=== PATIENT | male | born 1955 | race Caucasian/White ===

== ENCOUNTER 2017-09-15 09:10 | Outpatient (CLI) | payer OTHER | END 2017-09-15 09:11 | disposition home or self-care (01) | LOC: BICRAD 09:10 | PROVIDERS: ATTEND Internal Medicine Rheumatology | DX: L40.53 Psoriatic spondylitis (principal); J98.11 Atelectasis | CPT/HCPCS: 71046 ==

== ENCOUNTER 2017-12-10 09:57 | Outpatient (CLI) | payer OTHER ==
--- NOTE | 2017-12-10 11:13 | RAD ---
LUMBAR SPINE SERIES FOUR VIEWS WITH FLEXION AND EXTENSION: History: Severe back pain. FINDINGS: There is limited motion in either flexion and extension. The vertebral bodies are normal in height. D egenerative osteophytes are seen. Some minimal disc narrowing at L2-3. No abnormal motion is seen on limited flexion and extension views. Pedicles are intact. Post op changes which appear to be related to prostatectomy changes present. IMPRESSION: Mild arthritic changes of the spine. POS: TODD
== END 2017-12-10 09:58 | disposition home or self-care (01) ==
LOC: SCSRAD 09:57
PROVIDERS: ATTEND Neurological Surgery
DX: M47.26 Other spondylosis with radiculopathy, lumbar region (principal)
CPT/HCPCS: 72100; 72120

== ENCOUNTER 2017-12-30 09:06 | Outpatient (CLI) | payer OTHER ==
[2017-12-30 10:51] LABS: Hemoglobin 14.6 g/dL (14.0-18.0); Mean Corpuscular HGB CONC 33.9 g/dL (32.0-36.0); Mean Corpuscular Hemoglobin 33.1 pg (27.0-31.0); Mean Corpuscular Volume 97.5 fL (78.0-98.0); Mean Platelet Volume 7.2 fL (7.4-10.4); Platelet Count 313 thou/uL (130-400); RBC Distribution Width 11.6 % (11.5-14.5); Red Blood Cell (RBC) Count 4.43 mill/uL (4.70-6.10); White Blood Cell (WBC) Count 6.8 thou/uL (4.8-10.8)
[2017-12-30 10:52] LABS: PTT 31.1 SEC (22.9-36.1); Prothrombin Time 12.8 SEC (12.0-14.7)
[2017-12-30 11:23] LABS: Anion Gap 13 mmol/L (10-20); BUN (Urea Nitrogen) 16 mg/dL (8.4-25.7); Calc. Creatinine Clearance 0 mL/min (70-130); Calcium 9.3 mg/dL (7.8-10.44); Carbon Dioxide 26 mmol/L (23-31); Chloride 103 mmol/L (98-107); Estimated GFR-MDRD Greater than 90; Glucose 95 mg/dL (80-115); Potassium 4.3 mmol/L (3.5-5.1); Sodium 138 mmol/L (136-145)
--- NOTE | 2018-01-04 14:35 | EKG ---
Test Reason : Blood Pressure : / mmHG Vent. Rate : 065 BPM Atrial Rate : 065 BPM P-R Int : 192 ms QRS Dur : 090 ms QT Int : 414 ms P-R-T Axes : 058 -14 006 degrees QTc Int : 430 ms Normal sinus rhythm Normal ECG No previous ECGs available Confirmed by CARLOTA COLEY (2) on 01/04/2018 2:35:41 PM Referred By: ERNESTINE Confirmed By:CARLOTA COLEY
== END 2017-12-30 09:07 | disposition home or self-care (01) ==
LOC: LABBT 09:06
PROVIDERS: ATTEND Neurological Surgery
DX: Z01.818 Encounter for other preprocedural examination (principal); M48.061 Spinal stenosis, lumbar region without neurogenic claudication; M71.30 Other bursal cyst, unspecified site
CPT/HCPCS: 80048; 85027; 85610; 85730; 93005; 93010

== ENCOUNTER 2018-01-01 10:37 | Day surgery (SDC) | payer OTHER ==
[2017-12-30 09:42] VITALS: BMI 25.0
--- NOTE | 2017-12-31 15:56 | HP ---
HISTORY OF PRESENT ILLNESS: This is a 62-year-old male who presents to our office for evaluation of low back pain and leg pain. He is showing symptoms of lumbar radiculopathy. Patient states that he has had back pain that has gotten significantly worse over the last several months. He states that h e is unable to stand for any length of time. He states it is worse on the right. The pain starts in his back and progresses into his hips and the back of his legs. Since his injection, the pain has n ot gone past his knees. The patient states his pain is relieved by sitting or lying down and in thos e positions, he is almost pain free. He denies any numbness or tingling and that he is only able to stand for 5-10 minutes without needing to sit down. REVIEW OF SYSTEMS: A 10-point review of systems has been completed and is otherwise negative as stat ed in the above HPI. PAST MEDICAL HISTORY: Depression, bladder neck obstruction, dermatitis, hypertension, herpes simplex , history of prostate cancer, migraines with auras, obstructive sleep apnea, psoriasis, hypercholeste rolemia, testicular hypofunction, urethral strictures, history of alcohol abuse. PAST SURGICAL HISTORY: Prostatectomy in 2009. FAMILY HISTORY: Father is , diagnosed with a stroke and cancer. Mother is alive. Father al so had prostate cancer. SOCIAL HISTORY: The patient is a nonsmoker, is a previous alcoholic and has been in treatment and cirsostomo s stopped drinking in 2016. 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 MEDICATIONS: Amlodipine, atorvastatin, bupropion, Humira. ALLERGIES: PENICILLIN. PHYSICAL EXAMINATION: CONSTITUTIONAL: Well-appearing, well-nourished, alert. NEUROLOGIC: Mental status, oriented to time, place and person. Normal attention span and concentrat ion. Speech is spontaneous and fluent. Comprehension intact. Content appropriate. Normal fund of k nowledge. Cranial nerves: Pupils equal, round, reactive to light. Extraocular movements are intact . Hearing is intact. Motor: Muscle strength normal in lower extremities. Muscle tone and bulk nor mal in lower extremities, 5/5 bilateral strength in IP, KE, KS, DP, PS, EHL. No radiculopathy. Nega tive single leg raise bilaterally. Rotation of bilateral hips normal. Tender to palpation at L3 to the sacrum. Deep tendon reflexes 2+ bilaterally. Patellar and Achilles. Sensory to light touch int act. Gait and station suggesting slow gait, slow bent at the waist, forward flexed. RESPIRATORY: Normal work of breathing room air. PSYCHIATRIC: Normal mood and affect. IMAGING: Lumbar MRI L3-L4 reveals synovial cyst with significant central canal compression at L4-L5, herniated nucleus pulposus with central stenosis. ASSESSMENT AND PLAN: Synovial cyst, lumbar radiculopathy. Dr. Marques has offered a lumbar fernandez ctomy at L3 through L5 with the synovial cyst resection at L3-4. We have gotten consent, the indicat ions and risks, benefits, alternatives, expected result from surgery have been discussed. The risks discussed included, but were not limited to bleeding, infection, CSF leak, cauda equina injury, arach noiditis, paralysis and ventilator dependence, wheelchair dependence, loss of vision, complications o f anesthesia or . Long-term complications discussed included, but were not limited to the degra dation of surrounding disks and the need for further surgery. The patient states that he understands the risks and is willing to proceed with surgery.
[~2018-01-01 10:37] MED LIST: Dexamethasone 20 MG/5 ML VIAL ONE; Esmolol 100 MG/10 ML VIAL ONE; Glycopyrrolate 0.2 MG/ML 5 ML SYRINGE ONE; Lidocaine 1% PF 5 ML VIAL ONE; Metoclopramide HCl 10 MG/2 ML VIAL ONE; Ondansetron HCl/PF 4 MG/2 ML Vial ONE; PROPOFOL 200 MG/20 ML VIAL ONE; ePHEDrine/0.9% NaCl/PF SYRINGE 50 mg/10 ml ONE
[2018-01-01] MEDS ORDERED: Midazolam HCl 2 mg/2 ml Vial ONE (11:59)
[2018-01-01] MEDS ORDERED: Bupivacaine HCl 0.5%/Epinephrine 1:200,000/PF 30 ml Vial ONE (12:07)
[2018-01-01] MEDS ORDERED: Sodium Chloride 0.9% 20 ML ONE (12:07)
[2018-01-01] MEDS ORDERED: Thrombin 5000 UNITS/5 ML VIAL ONE (12:07)
[2018-01-01] MEDS ORDERED: Fentanyl 100 MCG/2 ML VIAL ONE ×5 (12:47→16:42)
[2018-01-01] MEDS ORDERED: HYDROcodone/Acetaminophen 5/325 mg Tablet ONE (18:01)
[2018-01-01] MEDS ORDERED: Clindamycin/D5W 900 mg/50 ml Premix Bag ONE (18:57)
--- NOTE | 2018-01-01 21:22 | OP ---
DATE OF OPERATION: 01/01/2018 PERFORMED BY: Sp Marques M.D. MAC DEVELOPER: Cierra Guido PA-C PREOPERATIVE INDICATIONS: Prevent further neurological deterioration. PREOPERATIVE DIAGNOSES: Two-level lumbar stenosis with neurogenic claudication and left-sided L4 rad iculopathy from synovial cyst formation on the L3-L4 facet joint. POSTOPERATIVE DIAGNOSES: Two-level lumbar stenosis with neurogenic claudication and left-sided L4 ra diculopathy from synovial cyst formation on the L3-L4 facet joint. OPERATIVE PROCEDURE: Decompressive laminectomy, medial facetectomy, foraminotomy at L3-L4, L4-L5 and resection of a synovial cyst causing epidural compression in the left lateral recess at L3-L4. PREOPERATIVE MEDICATION: Clindamycin 900 mg IV and Levaquin 500 mg IV. DRAIN NUMBER: Zero. DRAIN TYPE: None. OPERATIVE DICTATION: The patient was brought to the operating room. General endotracheal anesthesia was induced. The patient was positioned prone on gel filled chest rolls and a lateral fluoro radiog raph was used to plan our incision. The lumbar skin was sterilely prepped and draped. We opened our incision with a 10 blade knife and controlled bleeding with bipolar and monopolar cautery. We used monopolar cautery to dissect through subcutaneous tissues to the thoracodorsal fascia. We incised th e fascia in the midline and we reflected the paraspinal muscles off the spinous process and lamina of L3, L4, and the top of L5. A lateral fluoro radiograph confirmed the levels upon which we were oper ating. We then used an Adson rongeur to remove spinous processes and a Kerrison rongeur to fashion a laminectomy from the top of L5 to the top of L3. We widened our laminectomy defect until we were fl ush with the pedicles. We performed medial facetectomies and Kerrisons to decompress the lateral rec esses. Performed foraminotomies over the exiting L3-L4 and L5 nerve roots. We found a dense calcifi ed cyst attached to the facet joint at L3-L4 on the left side. There is connective tissue surroundin g the small amount of fluid. This was teased off the L4 nerve root in the lateral edge of the common thecal sac. It was removed in a piecemeal fashion. There was no abnormal coloration, no abnormal a dhesion to surrounding tissues and this looked completely benign. With that decompression done, we p erformed a foraminotomy over the L4 nerve root in a more extensive fashion. We irrigated copiously w ith bacitracin irrigation. We took a Flores ball probe and passed it through the lateral recess and out the foramen with each of the nerve roots we then decompressed. We irrigated once again with baci tracin irrigation and waxed the bone edges. We closed the wound in anatomic layers and applied a charles rile dressing. This was a clean case and no contamination.
== END 2018-01-01 19:18 | disposition home or self-care (01) ==
LOC: SDC 10:37
PROVIDERS: ATTEND Neurological Surgery
PROC: 01NB0ZZ Release Lumbar Nerve, Open Approach (ICD-10-PCS; principal; 2018-01-01)
DX: M71.38 Other bursal cyst, other site (principal); M48.062 Spinal stenosis, lumbar region with neurogenic claudication; M54.16 Radiculopathy, lumbar region; F32.9 Major depressive disorder, single episode, unspecified; G43.909 Migraine, unspecified, not intractable, without status migrainosus; G47.33 Obstructive sleep apnea (adult) (pediatric); E78.00 Pure hypercholesterolemia, unspecified; F10.11 Alcohol abuse, in remission; Z79.82 Long term (current) use of aspirin; Z79.899 Other long term (current) drug therapy; Z88.0 Allergy status to penicillin
CPT/HCPCS: 76001; 96374; 96375; 96376; A4216; J0131; J0670; J2250; J3010; J3370; J3490

== ENCOUNTER 2019-03-30 13:45 | Outpatient (CLI) | payer OTHER ==
--- NOTE | 2019-03-30 16:31 | MRI ---
MRI lumbar spine noncontrast HISTORY: Low back pain. FINDINGS: Images partially showing the lower abdomen demonstrate a well-circumscribed cyst at the med ial cortex of the left kidney. Conus medullaris has a normal appearance. Vertebral body heights and alignment are maintained. Mild d iscogenic endplate changes within the bone marrow of the vertebral bodies. Desiccation of the lowest 4 intervertebral discs. T12-L1, L1-2: Mild osteophytosis. Central canal and neural foramina are patent. L2-3: Disc space narrowing. Posterior disc bulge and circumferential degenerative changes. Mild steno sis of the central canal. Moderate right and mild left foraminal stenoses. L3-4: Mild disc space narrowing. Posterior disc bulge and circumferential degenerative changes. Poste rior operative decompression. Thecal sac is patent. Moderate to severe bilateral foraminal stenoses. L4-5: Mild disc space narrowing. Diffuse posterior disc bulge. Posterior operative decompression with thecal sac remaining patent. Degenerative changes with severe bilateral foraminal stenoses, right greater than left. L5-S1: Mild posterior disc bulge. Osteophytosis of the facets. Thecal sac is patent. Mild to moderate bilateral foraminal stenoses. IMPRESSION: Postoperative changes and multilevel degenerative changes throughout the lumbar spine as detailed above, most severe at the right L4-5 neural foramen. Clinical correlation regarding the right L4 dermatome is required.
--- NOTE | 2019-03-31 08:11 | MRI ---
MRI Lower Ext Jt Rt WO Con History: M [age] acute right-sided low back pain with sciatica Comparison: None Findings: Majority of the exam is degraded by extensive motion artifact. Bones: No fracture. No malalignment. No stress edema. Moderate narrowing of the pubic symphysis with hypertrophic osteophyte formation and obstruction of t he central articular disc. Labrum: Tear of the anterior superior labrum with small subcortical osteophyte of the acetabulum. Cartilage: No full-thickness cartilage erosion. Approximately 40% chondral loss throughout the articu lar surface. Muscles: Mild edema, incompletely evaluated, of the posterior paraspinal musculature at the level of L4 and L5. Intrapelvic soft tissues: Mild fracture funneling of the urinary bladder at the internal urethral sph incter. Moderate bilateral fat containing indirect inguinal hernias. Tendons: Mild interstitial tearing common hamstring tendon with tendinosis of the semimembranosus. Impression: 1. Limited examination of nearly all sequences due to extensive motion. 2. No acute abnormality of the pelvis. 3. Chronic labral tear with small subcortical cysts and os acetabulum. 4. Small bilateral femoral head/neck ring osteophytes. 5. Funneling of the urinary bladder at the internal urethral sphincter can be seen with urinary incon tinence. 6. Moderate to large bilateral fat-containing indirect inguinal hernias.
== END 2019-03-30 13:46 | disposition home or self-care (01) ==
LOC: SCSMRI 13:45
PROVIDERS: ATTEND Family Medicine
DX: M71.38 Other bursal cyst, other site (principal); S33.5XXA Sprain of ligaments of lumbar spine, initial encounter; M25.78 Osteophyte, vertebrae; K40.90 Unilateral inguinal hernia, without obstruction or gangrene, not specified as recurrent; Z98.890 Other specified postprocedural states; M47.816 Spondylosis without myelopathy or radiculopathy, lumbar region
CPT/HCPCS: 72148

== ENCOUNTER 2019-05-25 10:39 | Outpatient (CLI) | payer MEDICARE ==
--- NOTE | 2019-05-25 10:59 | RAD ---
EXAM: 4 views of the lumbosacral spine HISTORY: Low back pain status post surgery COMPARISON: None FINDINGS: 4 views of the lumbosacral spine shows normal height and alignment of the vertebral bodies and intervertebral discs without fracture or subluxation. Moderate osteophytes are seen throughout the lumbar spine. The patient is status post bilateral laminectomies at L4. Alignment is unchanged w ith flexion and extension. The sacroiliac joints are unremarkable. IMPRESSION: Degenerative and postsurgical changes of the spine with unchanged alignment with bending
--- NOTE | 2019-05-25 14:53 | RAD ---
XR Hip Rt 2-3 View HISTORY: Right hip pain right leg pain FINDINGS: No fracture or dislocation is identified. Mild degenerative changes are present.
== END 2019-05-25 10:40 | disposition home or self-care (01) ==
LOC: TBSIIMAG 10:39
PROVIDERS: ATTEND Neurological Surgery
DX: M54.5 Low back pain (principal); M25.551 Pain in right hip; M16.11 Unilateral primary osteoarthritis, right hip; M47.816 Spondylosis without myelopathy or radiculopathy, lumbar region; Z98.890 Other specified postprocedural states
CPT/HCPCS: 72110

== ENCOUNTER 2019-07-02 09:31 | Outpatient (CLI) | payer MEDICARE ==
--- NOTE | 2019-07-02 09:55 | RAD ---
Exam: XR Tib Fib Rt Leg 2 View HISTORY: Patient with palpable abnormality/mass medial aspect mid calf for 3 weeks. COMPARISON: None FINDINGS: Marker is seen overlying location of patient's palpable abnormality. No osseous abnormality is seen a t this level. No radiopaque foreign body is identified. There is deformity involving the distal right fibula which is likely related to prior injury and konrad te fracture. No acute fracture or dislocation is seen. No lytic or sclerotic osseous lesions are identified. IMPRESSION: 1. No acute osseous abnormality identified. MRI distal right lower extremity is recommended for [facility] evaluation of patient's palpable abnormality.
== END 2019-07-02 09:32 | disposition home or self-care (01) ==
LOC: SCSRAD 09:31
PROVIDERS: ATTEND Family Medicine
DX: R22.41 Localized swelling, mass and lump, right lower limb (principal)

== ENCOUNTER 2019-07-12 09:37 | Outpatient (CLI) | payer MEDICARE ==
--- NOTE | 2019-07-12 13:12 | MRI ---
MRI OF RIGHT LOWER EXTREMITY WITH AND WITHOUT CONTRAST: HISTORY: Mass of the lower extremity. COMPARISON: Radiograph 07/02/2019 for reference. FINDINGS: Bones: No fracture. No malalignment. No abnormal enhancement. The medullary cavity is maintained as well as the cortex. No marrow signal replacement on the T1 sequence. Soft Tissues: Near the region of interest marker is mild anteromedial periosteal edema with mild periosteal thicken ing. No solid enhancing mass is appreciated. Muscles: Muscle signal and bulk is normal. Mildly enlarged intramuscular venous plexus. IMPRESSION: 1. Findings likely of anteromedial tibial stress syndrome with some periosteal thickening and adjac ent periosteal edema. Cortex is intact as well as medullary cavity. No solid enhancing mass. Recom mend correlation with recent increase in activity. If this continues to enlarge or get progressively worsened with pain, repeat examination may be beneficial. 2. No soft tissue mass. 3. Mildly enlarged draining veins of the posterior compartment may reflect a component of the insuff iciency. POS: HOME
== END 2019-07-12 09:38 | disposition home or self-care (01) ==
LOC: SCSMRI 09:37
PROVIDERS: ATTEND Family Medicine
DX: R22.41 Localized swelling, mass and lump, right lower limb (principal); I87.8 Other specified disorders of veins
CPT/HCPCS: 82565

== ENCOUNTER 2020-12-14 10:16 | Day surgery (SDC) | payer MEDICARE ==
[2020-12-13 12:43] VITALS: BMI 27.1
[2020-12-14] MEDS ORDERED: Fentanyl 100 MCG/2 ML VIAL ONE ×3 (11:18→14:42)
[2020-12-14] MEDS ORDERED: Midazolam HCl 2 mg/2 ml Vial ONE ×2 (11:18→11:45)
[2020-12-14] MEDS ORDERED: Scopolamine 1.5 mg/72 hour Patch ONE (11:19)
[2020-12-14] MEDS ORDERED: Lidocaine 1% w/Epinephrine 1:100K 30 ML VIAL ONE (11:44)
[2020-12-14] MEDS ORDERED: Bupivacaine 0.25% HCL 30 ML VIAL ONE (11:44)
[2020-12-14] MEDS ORDERED: HYDROmorphone 0.5 MG/0.5 ML SYRINGE ONE (11:46)
[2020-12-14] MEDS ORDERED: Lidocaine 2% Jelly 5 ML TUBE ONE (11:46)
[2020-12-14] MEDS ORDERED: Glycopyrrolate 0.2 MG/ML 5 ML SYRINGE ONE (11:59)
[2020-12-14] MEDS ORDERED: Dexamethasone 20 MG/5 ML VIAL ONE (11:59)
[2020-12-14] MEDS ORDERED: Lidocaine 1% PF 5 ML VIAL ONE (11:59)
[2020-12-14] MEDS ORDERED: ePHEDrine 50 MG/ML VIAL ONE (11:59)
[2020-12-14] MEDS ORDERED: Rocuronium Bromide 10 MG/ML (10ML VIAL) ONE (11:59)
[2020-12-14] MEDS ORDERED: Ketorolac Tromethamine 30 MG/ML VIAL ONE (11:59)
[2020-12-14] MEDS ORDERED: Ondansetron PF 4 MG/2 ML Vial ONE (11:59)
[2020-12-14] MEDS ORDERED: PROPOFOL 200 MG/20 ML VIAL ONE (11:59)
[2020-12-14] MEDS ORDERED: traMADol HCl 50 MG TAB ONE (16:12)
== END 2020-12-14 18:56 | disposition home or self-care (01) ==
LOC: SDC 10:16
PROVIDERS: ATTEND Surgery
PROC: 0YUA4JZ Supplement Bilateral Inguinal Region with Synthetic Substitute, Percutaneous Endoscopic Approach (ICD-10-PCS; principal; 2020-12-14)
DX: K40.21 Bilateral inguinal hernia, without obstruction or gangrene, recurrent (principal); I10 Essential (primary) hypertension; G43.009 Migraine without aura, not intractable, without status migrainosus; G47.33 Obstructive sleep apnea (adult) (pediatric); E78.00 Pure hypercholesterolemia, unspecified; F10.11 Alcohol abuse, in remission; Z79.82 Long term (current) use of aspirin; Z79.899 Other long term (current) drug therapy; Z88.0 Allergy status to penicillin
CPT/HCPCS: 49651; C1781; J0690; J1100; J1170; J1885; J2250; J2405; J2704; J3010; J3490; S0020